=== PATIENT | female | born 1955 | race Caucasian/White ===

== ENCOUNTER 2017-02-19 17:27 | Emergency (ER) | payer MEDICARE, OTHER ==
[2017-02-19 22:02] LABS: BASO % 0.6 % (0.1-1.2); EOS # 0.1 10_X3_uL (0.0-0.4); EOS % 0.9 % (0.7-5.8); GRAN # 4.6 10_X3_uL (1.6-6.1); GRAN % 68.3 % (34.0-71.1); HEMATOCRIT 34.2 % (34-45); HEMOGLOBIN 9.9 g/dL (11.2-15.7); LYMPH # 1.5 10_X3_uL (1.2-3.7); LYMPH % 21.8 % (19.3-51.7); MEAN CORPUSCULAR HEMOGLOBIN 21.5 pg (27.0-33.0); MEAN CORPUSCULAR HGB CONC 28.9 g/dL (32.0-36.0); MEAN CORPUSCULAR VOLUME 74.3 fL (79-95); MEAN PLATELET VOLUME 10.2 fl (7.5-11.5); MONO # 0.6 10_X3_uL (0.2-0.9); MONO % 8.4 % (4.7-12.5); PLATELET COUNT 190 x10_3/uL (182-369); WHITE BLOOD COUNT 6.7 x10_3/uL (4.0-10.0)
[2017-02-19 22:15] LABS: ALBUMIN 3.5 gm/dL (3.4-5.0); BILIRUBIN,TOTAL 0.73 mg/dL (0.0-1.0); CALCIUM 8.8 mg/dL (8.7-10.7); POTASSIUM 4.4 mmol/L (3.5-5.1); TOTAL PROTEIN 6.3 gm/dL (6.4-8.2)
== END 2017-02-20 02:50 | disposition home or self-care (01) ==
LOC: ER 17:27
PROVIDERS: Emergency Medicine
DX: E86.0 Dehydration (principal); R53.1 Weakness; E11.9 Type 2 diabetes mellitus without complications; Z90.710 Acquired absence of both cervix and uterus; F17.210 Nicotine dependence, cigarettes, uncomplicated; R91.8 Other nonspecific abnormal finding of lung field; Z79.84 Long term (current) use of oral hypoglycemic drugs; Z99.81 Dependence on supplemental oxygen; Z79.899 Other long term (current) drug therapy
CPT/HCPCS: 36415; 80053; 85025; 96360; 99283; 99284-25